=== PATIENT | female | born 1995 | race Caucasian/White ===

== ENCOUNTER 2018-10-07 20:15 | Inpatient (IN) | payer OTHER ==
[2018-10-07] MEDS: NACL 0.9% 3 ML SYG IV (22:37)
[2018-10-07] MEDS: SOD CHLORIDE 0.9% 1,000 ML IV (22:37)
[2018-10-07] MEDS: ONDANSETRON 4 MG INJ IV (22:38)
[2018-10-07] MEDS: HYDROmorphONE 0.5 MG/0.5 ML SYG IV (22:38)
[2018-10-07 22:57] LABS: ADD MAN DIFF? NO
[2018-10-07 23:01] LABS: WHITE BLOOD COUNT 11.2 10^3/ul (4.8-10.8)
[2018-10-07 23:01] LABS: BASOPHILS % 0.2 % (0.0-2.0); EOSINOPHILS # 0.2 10^3/ul (0.0-0.5); EOSINOPHILS % 1.5 % (0.0-7.0); HEMATOCRIT 35.1 % (37.0-47.0); HEMOGLOBIN 11.2 g/dl (12.0-16.0); LYMPHOCYTES # 3.2 10^3/ul (0.8-2.9); LYMPHOCYTES % 28.2 % (15.0-51.0); MEAN CORPUSCULAR HEMOGLOBIN 24.7 pg (29.0-33.0); MEAN CORPUSCULAR HGB CONC 31.9 g/dl (32.0-37.0); MEAN CORPUSCULAR VOLUME 77.5 fl (82.0-101.0); MEAN PLATELET VOLUME 10.2 fl (7.4-10.4); MONOCYTE # 0.6 10^3/ul (0.3-0.9); NEUTROPHIL # 7.2 10^3/ul (1.6-7.5); NEUTROPHILS % 64.8 % (39.0-77.0); PLATELET COUNT 302 10^3/UL (140-415); RED BLOOD COUNT 4.53 10^6/ul (4.20-5.40); RED CELL DISTRIBUTION WIDTH 15.1 % (11.5-14.5)
[2018-10-07 23:22] LABS: ALANINE AMINOTRANSFERASE 26 IU/L (13-69); ALBUMIN 3.8 g/dl (3.3-4.9); ALBUMIN/GLOBULIN RATIO 1.05; ALKALINE PHOSPHATASE 86 IU/L (42-121); ANION GAP 9 (5-13); ASPARTATE AMINO TRANSFERASE 17 IU/L (15-46); BILIRUBIN,INDIRECT 0.2 mg/dl (0-1.1); BILIRUBIN,TOTAL 0.2 mg/dl (0.2-1.3); BLOOD UREA NITROGEN 10 mg/dl (7-20); CALCIUM 8.8 mg/dl (8.4-10.2); CARBON DIOXIDE 23 mmol/L (21-31); CHLORIDE 107 mmol/L (97-110); CHOL/HDL RATIO 3.7 RATIO; CHOLESTEROL 105 mg/dl (100-200); CREATININE 0.51 mg/dl (0.44-1.00); Estimated GFR > 60 mL/min (>60); GLUCOSE 82 mg/dl (70-220); HDL CHOLESTEROL 28 mg/dl (33-83); LDL CHOLESTEROL,CALCULATED 58 mg/dl; POTASSIUM 3.2 mmol/L (3.5-5.1); SODIUM 139 mmol/L (135-144); TOTAL PROTEIN 7.4 g/dl (6.1-8.1); TRIGLYCERIDES 94 mg/dl (0-149)
[2018-10-07] MEDS: PIPER-TAZO 3.375 GM IV (PMX) 100 ML IVPB (23:47)
[2018-10-08] MEDS: PIPER-TAZO 3.375 GM IV (PMX) 100 ML IVPB ×3 (05:43→17:08)
[2018-10-08] MEDS: HYDROmorphONE 0.5 MG/0.5 ML SYG IV ×3 (06:04→20:22)
[2018-10-08] MEDS: ACETAMINOPHEN 325 MG TAB PO (08:25)
[2018-10-08] MEDS ORDERED: morphine SULFATE/PF (2 MG/2 ML) SYG IV (09:00)
[2018-10-08 10:06] LABS: IRON 109 ug/dl (35-150)
[2018-10-08 10:15] LABS: % IRON SATURATION 34 % SAT (22-52); TOTAL IRON BINDING CAPACITY 317 ug/dl (241-421)
[2018-10-08] MEDS: SOD CHLORIDE 0.9% 1,000 ML IV ×2 (11:20→17:08)
[2018-10-08] MEDS: ONDANSETRON 4 MG INJ IV ×2 (14:20→21:32)
[2018-10-08] MEDS: HYDROCODONE/APAP (5/325) TAB PO (14:20)
[2018-10-09] MEDS: PIPER-TAZO 3.375 GM IV (PMX) 100 ML IVPB ×4 (00:48→17:52)
[2018-10-09] MEDS: HYDROmorphONE 0.5 MG/0.5 ML SYG IV ×5 (00:51→20:32)
[2018-10-09] MEDS: SOD CHLORIDE 0.9% 1,000 ML IV (03:56)
[2018-10-09 05:03] LABS: ADD MAN DIFF? NO; BASOPHILS % 0.2 % (0.0-2.0); EOSINOPHILS # 0.2 10^3/ul (0.0-0.5); EOSINOPHILS % 1.7 % (0.0-7.0); HEMATOCRIT 34.1 % (37.0-47.0); LYMPHOCYTES # 2.6 10^3/ul (0.8-2.9); LYMPHOCYTES % 26.1 % (15.0-51.0); MEAN CORPUSCULAR HEMOGLOBIN 24.9 pg (29.0-33.0); MEAN CORPUSCULAR HGB CONC 32.3 g/dl (32.0-37.0); MEAN CORPUSCULAR VOLUME 77.1 fl (82.0-101.0); MEAN PLATELET VOLUME 10.1 fl (7.4-10.4); MONOCYTE # 0.6 10^3/ul (0.3-0.9); MONOCYTES % 5.5 % (0.0-11.0); NEUTROPHIL # 6.6 10^3/ul (1.6-7.5); NEUTROPHILS % 66.3 % (39.0-77.0); PLATELET COUNT 276 10^3/UL (140-415); RED BLOOD COUNT 4.42 10^6/ul (4.20-5.40); RED CELL DISTRIBUTION WIDTH 14.8 % (11.5-14.5)
[2018-10-09 05:03] LABS: WHITE BLOOD COUNT 9.9 10^3/ul (4.8-10.8)
[2018-10-09 05:28] LABS: ALANINE AMINOTRANSFERASE 20 IU/L (13-69); ALBUMIN 3.5 g/dl (3.3-4.9); ALBUMIN/GLOBULIN RATIO 1.02; ALKALINE PHOSPHATASE 76 IU/L (42-121); ANION GAP 13 (5-13); ASPARTATE AMINO TRANSFERASE 16 IU/L (15-46); BILIRUBIN,INDIRECT 0.2 mg/dl (0-1.1); BILIRUBIN,TOTAL 0.2 mg/dl (0.2-1.3); BLOOD UREA NITROGEN 8 mg/dl (7-20); CALCIUM 8.7 mg/dl (8.4-10.2); CARBON DIOXIDE 23 mmol/L (21-31); CHLORIDE 109 mmol/L (97-110); CREATININE 0.67 mg/dl (0.44-1.00); Estimated GFR > 60 mL/min (>60); GLUCOSE 89 mg/dl (70-220); MAGNESIUM 2.2 mg/dl (1.7-2.5); POTASSIUM 3.5 mmol/L (3.5-5.1); SODIUM 145 mmol/L (135-144); TOTAL PROTEIN 6.9 g/dl (6.1-8.1)
[2018-10-09] MEDS: ONDANSETRON 4 MG INJ IV (06:17)
[2018-10-09] MEDS: METOCLOPRAMIDE 10 MG INJ IV (11:11)
[2018-10-09] MEDS: POTASSIUM CHLORIDE 100 ML IVPB ×2 (11:12→13:00)
[2018-10-09] MEDS: DEXTROSE 5%-0.45% NACL 1,000 ML IV (13:16)
[2018-10-09] MEDS: SINCALIDE 5 MCG INJ IV (15:30)
[2018-10-09] MEDS: PROPOFOL 40 ML (16:06)
[2018-10-09] MEDS ORDERED: FENTAnyl 50 MCG/ML VIAL IV (16:30)
[2018-10-10] MEDS: PIPER-TAZO 3.375 GM IV (PMX) 100 ML IVPB ×4 (00:10→18:57)
[2018-10-10] MEDS: HYDROmorphONE 0.5 MG/0.5 ML SYG IV ×5 (02:00→23:24)
[2018-10-10 05:03] LABS: ADD MAN DIFF? NO
[2018-10-10 05:06] LABS: WHITE BLOOD COUNT 10.2 10^3/ul (4.8-10.8)
[2018-10-10 05:06] LABS: BASOPHILS % 0.2 % (0.0-2.0); EOSINOPHILS # 0.2 10^3/ul (0.0-0.5); EOSINOPHILS % 1.9 % (0.0-7.0); HEMATOCRIT 35.7 % (37.0-47.0); HEMOGLOBIN 11.2 g/dl (12.0-16.0); LYMPHOCYTES # 2.7 10^3/ul (0.8-2.9); LYMPHOCYTES % 26.9 % (15.0-51.0); MEAN CORPUSCULAR HEMOGLOBIN 24.5 pg (29.0-33.0); MEAN CORPUSCULAR HGB CONC 31.4 g/dl (32.0-37.0); MEAN CORPUSCULAR VOLUME 77.9 fl (82.0-101.0); MONOCYTE # 0.7 10^3/ul (0.3-0.9); MONOCYTES % 6.6 % (0.0-11.0); NEUTROPHIL # 6.5 10^3/ul (1.6-7.5); NEUTROPHILS % 64.1 % (39.0-77.0); PLATELET COUNT 279 10^3/UL (140-415); RED BLOOD COUNT 4.58 10^6/ul (4.20-5.40); RED CELL DISTRIBUTION WIDTH 14.7 % (11.5-14.5)
[2018-10-10 05:32] LABS: ALANINE AMINOTRANSFERASE 27 IU/L (13-69); ALBUMIN 3.6 g/dl (3.3-4.9); ALBUMIN/GLOBULIN RATIO 1.09; ALKALINE PHOSPHATASE 85 IU/L (42-121); ANION GAP 9 (5-13); ASPARTATE AMINO TRANSFERASE 32 IU/L (15-46); BILIRUBIN,INDIRECT 0.1 mg/dl (0-1.1); BILIRUBIN,TOTAL 0.1 mg/dl (0.2-1.3); BLOOD UREA NITROGEN 7 mg/dl (7-20); CALCIUM 8.8 mg/dl (8.4-10.2); CARBON DIOXIDE 27 mmol/L (21-31); CHLORIDE 109 mmol/L (97-110); CREATININE 0.79 mg/dl (0.44-1.00); Estimated GFR > 60 mL/min (>60); GLUCOSE 100 mg/dl (70-220); MAGNESIUM 2.2 mg/dl (1.7-2.5); SODIUM 145 mmol/L (135-144); TOTAL PROTEIN 6.9 g/dl (6.1-8.1)
[2018-10-10] MEDS: PANTOPRAZOLE 40 MG INJ IV (05:33)
[2018-10-10] MEDS: DEXTROSE 5%-0.45% NACL 1,000 ML IV ×2 (05:33→22:13)
[2018-10-10 05:45] LABS: POTASSIUM 3.6 mmol/L (3.5-5.1)
[2018-10-10] MEDS ORDERED: FAMOTIDINE 20 MG INJ (07:00)
[2018-10-10] MEDS: POTASSIUM CHLORIDE 100 ML IVPB (13:21)
[2018-10-10] MEDS: BUPIVACAINE 0.5%/EPI (SDV) 30 ML INJ INJ (18:50)
[2018-10-10] MEDS ORDERED: DIPHENHYDRAMINE 50 MG INJ IV (19:30)
[2018-10-10] MEDS ORDERED: HYDROmorphONE 1 MG/5 ML IV SYRINGE IV (19:30)
[2018-10-10] MEDS ORDERED: PROCHLORPERAZINE 10 MG INJ IV (19:30)
[2018-10-10] MEDS ORDERED: FENTAnyl 50 MCG/ML VIAL IV ×3 (19:30)
[2018-10-10] MEDS ORDERED: MEPERIDINE 25 MG INJ IV (19:30)
[2018-10-10] MEDS ORDERED: ONDANSETRON 4 MG INJ IV ×2 (19:30→21:00)
[2018-10-10] MEDS ORDERED: LIDOCAINE 2% (SDV) 5 ML INJ (19:35)
[2018-10-10] MEDS ORDERED: ROCURONIUM 50 MG INJ (19:35)
[2018-10-10] MEDS ORDERED: SUCCINYLCHOLINE CHLORIDE 100 MG/5 ML SYG IV (19:35)
[2018-10-10] MEDS ORDERED: PROPOFOL 20 ML (19:35)
[2018-10-10] MEDS ORDERED: FENTAnyl 50 MCG/ML VIAL (19:35)
[2018-10-10] MEDS ORDERED: MIDAZOLAM 1 MG/ML 2 ML INJ (19:36)
[2018-10-10] MEDS ORDERED: PHENYLephrine (100 MCG/ML) 5ML SYG (19:47)
[2018-10-10] MEDS ORDERED: ONDANSETRON 4 MG INJ (19:47)
[2018-10-10] MEDS ORDERED: DEXAMETHASONE 4 MG/ML 5 ML INJ (19:47)
[2018-10-10] MEDS ORDERED: ROPIVACAINE 0.5 % 30 ML VIAL (19:58)
[2018-10-10] MEDS ORDERED: HYDROmorphONE 2 MG/ML SYG (20:14)
[2018-10-10] MEDS ORDERED: NEOSTIGMINE 3 MG/3 ML SYRINGE (20:44)
[2018-10-10] MEDS ORDERED: GLYCOPYRROLATE 1 MG INJ (20:44)
[2018-10-10] MEDS ORDERED: morphine 4 MG/ML VIAL IV (21:00)
[2018-10-10] MEDS ORDERED: OXYCODONE/ACETAMINOPHEN (5/325) TAB PO (21:00)
[2018-10-10] MEDS: HYDROmorphONE 1 MG/5 ML IV SYRINGE IV ×2 (21:36→21:44)
[2018-10-11] MEDS: HYDROmorphONE 0.5 MG/0.5 ML SYG IV (03:38)
[2018-10-11 05:24] LABS: ADD MAN DIFF? NO
[2018-10-11 05:37] LABS: WHITE BLOOD COUNT 12.4 10^3/ul (4.8-10.8)
[2018-10-11 05:37] LABS: ABNORMAL IP MESSAGE 1; BASOPHILS % 0.1 % (0.0-2.0); HEMATOCRIT 38.7 % (37.0-47.0); HEMOGLOBIN 12.4 g/dl (12.0-16.0); LYMPHOCYTES # 0.6 10^3/ul (0.8-2.9); LYMPHOCYTES % 4.8 % (15.0-51.0); MEAN CORPUSCULAR HEMOGLOBIN 24.8 pg (29.0-33.0); MEAN CORPUSCULAR VOLUME 77.6 fl (82.0-101.0); MEAN PLATELET VOLUME 9.7 fl (7.4-10.4); MONOCYTE # 0.1 10^3/ul (0.3-0.9); MONOCYTES % 0.7 % (0.0-11.0); NEUTROPHIL # 11.7 10^3/ul (1.6-7.5); NEUTROPHILS % 93.9 % (39.0-77.0); PLATELET COUNT 304 10^3/UL (140-415); RED BLOOD COUNT 4.99 10^6/ul (4.20-5.40); RED CELL DISTRIBUTION WIDTH 14.4 % (11.5-14.5)
[2018-10-11] MEDS: PANTOPRAZOLE 40 MG INJ IV (05:42)
[2018-10-11] MEDS: OXYCODONE/ACETAMINOPHEN (5/325) TAB PO ×3 (05:43→15:25)
[2018-10-11 06:02] LABS: POSITIVE DIFF @See below
[2018-10-11 06:12] LABS: ALANINE AMINOTRANSFERASE 45 IU/L (13-69); ALBUMIN 4.2 g/dl (3.3-4.9); ALBUMIN/GLOBULIN RATIO 1.16; ALKALINE PHOSPHATASE 100 IU/L (42-121); ANION GAP 15 (5-13); ASPARTATE AMINO TRANSFERASE 55 IU/L (15-46); BILIRUBIN,INDIRECT 0.1 mg/dl (0-1.1); BILIRUBIN,TOTAL 0.1 mg/dl (0.2-1.3); BLOOD UREA NITROGEN 5 mg/dl (7-20); CALCIUM 9.4 mg/dl (8.4-10.2); CARBON DIOXIDE 21 mmol/L (21-31); CHLORIDE 108 mmol/L (97-110); CREATININE 0.56 mg/dl (0.44-1.00); Estimated GFR > 60 mL/min (>60); GLUCOSE 131 mg/dl (70-220); MAGNESIUM 2.2 mg/dl (1.7-2.5); POTASSIUM 3.5 mmol/L (3.5-5.1); SODIUM 144 mmol/L (135-144); TOTAL PROTEIN 7.8 g/dl (6.1-8.1)
== END 2018-10-11 17:33 | disposition home or self-care (01) | DRG 418 ==
LOC: MS1 20:15
PROC: 0DB68ZX Excision of Stomach, Via Natural or Artificial Opening Endoscopic, Diagnostic (ICD-10-PCS; 2018-10-09 15:30)
PROC: 0FT44ZZ Resection of Gallbladder, Percutaneous Endoscopic Approach (ICD-10-PCS; principal; 2018-10-09 15:45)
DX: K80.10 Calculus of gallbladder with chronic cholecystitis without obstruction (principal); Z68.41 Body mass index [BMI] 40.0-44.9, adult; E66.01 Morbid (severe) obesity due to excess calories; D50.8 Other iron deficiency anemias; K29.70 Gastritis, unspecified, without bleeding
CPT/HCPCS: 78226; 80053; 80061; 82728; 83036; 83540; 83735; 84443; 84703; 85025; 88304; 88305; 88312; 88341; 88342